=== PATIENT | female | born 1985 | race Caucasian/White ===

== ENCOUNTER 2017-04-27 10:35 | Inpatient (IN) | payer BC ==
[~2017-04-27 10:35] MED LIST: BUTORPHANOL TARTRATE 1 MG/ML VIAL IVPUSH ONE; ELECTROLYTE-148 SOLN 1,000 ML IV SCH; PROMETHAZINE HCL 25 MG/1 ML VIAL IVPUSH ONE
[2017-04-27] MEDS ORDERED: AMPICILLIN - 100 ML IVPB ONE (11:00)
[2017-04-27 11:58] LABS: BASOPHIL 0.3 % (0-2.0); EOSINOPHIL 0.5 % (0-4.5); MCH 26.2 pg (25.7-33.7); MEAN CELL VOLUME 82.1 fl (80-96); MEAN PLT VOLUME 11.7 fl (7.5-11.1); NEUTROPHILS 79.2 % (42.8-82.8); PLATELET COUNT 156 K/MM3 (134-434); RDW 15.1 % (11.6-15.6); WHITE BLOOD COUNT 10.1 K/mm3 (4.0-10.0)
[2017-04-27 12:09] VITALS: BMI 39.5
[2017-04-27 12:16] LABS: ANION GAP 11 (8-16); CALCIUM 8.6 mg/dL (8.5-10.1); CO2 22 mmol/L (21-32); CREATININE 0.6 mg/dL (0.55-1.02); GLUCOSE,RANDOM 77 mg/dL (74-106)
[2017-04-27 12:18] LABS: INR 0.93 (0.82-1.09); PROTHROMBIN TIME (PATIENT) 10.2 SEC (9.98-11.88)
[2017-04-27 12:20] LABS: ACTIVATED PTT 25.8 SECONDS (26.9-34.4)
[2017-04-27] MEDS ORDERED: METHYLERGONOVINE MALEATE 0.2 MG/1 ML AMP IM PRN (13:05)
[2017-04-27] MEDS ORDERED: BENZOCAINE 28 GM HEMORRHOIDAL OINTMENT TP PRN (13:05)
[2017-04-27] MEDS ORDERED: WITCH HAZEL 50% (TUCKS) 40 PAD/JAR PAD TP PRN (13:05)
[2017-04-27] MEDS ORDERED: BENZOCAINE 20% 57 GM BOTTLE TP PRN (13:05)
[2017-04-27] MEDS ORDERED: BISACODYL 10 MG SUPP.RECT RC PRN (13:05)
--- NOTE | 2017-04-27 13:13 | HP ---
Past Medical History - Admission History Source: Patient - Past Medical History ...: 3 ...Para: 0 ...Term: 0 ...: 0 ...Spon : 0 ...Induced : 0 ...Multiple Gestation: 0 ...LMP: 07/27/16 ... Weeks Gestation by Dates: 39.1 ...EDC by Dates: 05/03/17 ...EDC by Sono: 05/01/17 - Past Surgical History Past Surgical History: Yes: None Hx Myomectomy: No Hx Transabdominal Cerclage: No - Smoking History Smoking history: Never smoked Have you smoked in the past 12 months: No - Alcohol/Substance Use Hx Alcohol Use: No Home Medications - Allergies Allergies/Adverse Reactions: Allergies Allergy/AdvReac Type Severity Reaction Status Date / Time No Known Allergies Allergy Verified 04/27/17 11:51 - Home Medications Home Medications: Ambulatory Orders Pnv95/Ferrous Fumarate/FA [ Vitamin Tablet] 1 each PO DAILY 04/27/17 Review of Systems - Review of Systems Constitutional: reports: No Symptoms Eyes: reports: No Symptoms HENT: reports: No Symptoms Neck: reports: No Symptoms Cardiovascular: reports: No Symptoms Respiratory: reports: No Symptoms Gastrointestinal: reports: Abdominal Pain Genitourinary: reports: No Symptoms Breasts: reports: No Symptoms Reported Musculoskeletal: reports: No Symptoms Integumentary: reports: No Symptoms Neurological: reports: No Symptoms Endocrine: reports: No Symptoms Hematology/Lymphatic: reports: No Symptoms Psychiatric: reports: No Symptoms Physical Exam - Maternity Vital Signs: Vital Signs Temperature 98.1 F 04/27/17 10:35 Pulse Rate 78 04/27/17 10:35 Respiratory Rate 2 L 04/27/17 10:35 Blood Pressure 136/72 04/27/17 10:35 O2 Sat by Pulse Oximetry (%) Constitutional: Yes: Well Nourished, No Distress Neck: Yes: WNL Cardiovascular: Yes: WNL, Regular Rate and Rhythm Lungs: Clear to auscultation Breast(s): Yes: WNL - Abdominal Exam/OB Fundal Height: 40 Number of Fetuses: Single Presentation: Vertex Contractions: Yes Regularity: Regular Monitor Mode: External - Vaginal Exam/OB Speculum Exam: No Dilatation (cm): 5-6 Amniotic Membrane Status: Ruptured Presentation: Vertex/Position Station: +2 - Labs Lab Results: CBC, BMP 04/27/17 11:35 04/27/17 11:35 Problem List - Problems (1) First stage of labor established Code(s): BAS5937 - Assessment/Plan IUP at 39 week Labor Obesity plan Anticipate vaginal delivery
[2017-04-27] MEDS ORDERED: OXYTOCIN 20 UNITS in 0.9% NS 1,000 ML IV SCH (13:15)
--- NOTE | 2017-04-27 13:18 | PN ---
Delivery - Delivery Vaginal Delivery: No Problems Type of Anesthesia: None Episiotomy/Laceration: None (repaired with 2-0 chomic), 1st degree EBL (cc): 300 (Nuchal X1) Delivery, Single - Stages of Labor Placenta: Yes: Spontaneous - Condition of Infant Gender: Male - 1 Minute Total Score: 9 5 Minutes Total Score: 9 - [place] Feeding Plan Initial Plan: Elected not to breastfeed exclusively throughout hospitalization
[2017-04-27 13:28] LABS: ARTERIAL BLOOD GAS HCO3 24.4 meq/L (22-26); ARTERIAL BLOOD GAS pH 7.26 (7.35-7.45)
[2017-04-27 13:29] LABS: PT. ON O2? NO
[2017-04-27 13:30] LABS: ARTERIAL BLD GAS O2 SATURATION 45.6 % (90-98.9); ARTERIAL BLOOD GAS PO2 24.6 mmHg (80-100)
[2017-04-27 13:32] LABS: VENOUS BLOOD GAS HCO3 22.2 meq/L (19-25); VENOUS PH 7.32 (7.32-7.42)
[2017-04-27] MEDS: IBUPROFEN 600 MG TABLET (FP) PO PRN ×2 (14:00→22:42)
[2017-04-27] MEDS: ACETAMINOPHEN 325 MG TABLET (FP) PO PRN ×2 (14:00→22:39)
[2017-04-27] MEDS ORDERED: TUBERCULIN PPD 5 TU/0.1ML SYRINGE (IN PATIENT USE ONLY) ID ONE (14:30)
[2017-04-27] MEDS ORDERED: AMPICILLIN - 100 ML IVPB SCH (15:00)
[2017-04-28] MEDS: ACETAMINOPHEN 325 MG TABLET (FP) PO PRN ×3 (05:32→17:20)
[2017-04-28] MEDS: IBUPROFEN 600 MG TABLET (FP) PO PRN ×3 (05:34→17:19)
[2017-04-28 07:55] LABS: BASOPHIL 0.3 % (0-2.0); EOSINOPHIL 0.9 % (0-4.5); MCH 26.5 pg (25.7-33.7); MCHC 32.3 g/dl (32.0-36.0); MEAN PLT VOLUME 11.2 fl (7.5-11.1); NEUTROPHILS 68.1 % (42.8-82.8); PLATELET COUNT 129 K/MM3 (134-434); RDW 15.2 % (11.6-15.6); WHITE BLOOD COUNT 10.8 K/mm3 (4.0-10.0)
[2017-04-28] MEDS ORDERED: DIPHTH,PERTUSS(ACELL),TET 0.5 ML DISP.SYRIN IM ONE ×2 (10:00→15:00)
[2017-04-28] MEDS: PRENATAL VITAMINS W/ FOLIC ACID TABLET (FP) PO SCH (10:12)
--- NOTE | 2017-04-28 10:14 | PN ---
Post Progress Note Type of Delivery: Vital Signs: Vital Signs Temperature 98.4 F 04/28/17 07:40 Pulse Rate 59 L 04/28/17 07:40 Respiratory Rate 20 04/28/17 07:40 Blood Pressure 119/57 04/28/17 07:40 O2 Sat by Pulse Oximetry (%) Uterus: Yes: Fundus below umbilicus Abdomen/GI: Yes: Abdomen soft, Passing flatus, Tolerating PO. No: Tender Lochia, amount: Small Extremities: Yes: Calves non-tender Perineum: Yes: Laceration (1st degree, repaired and well approximated) Activity: Ambulating - Labs Labs: CBC WBC 10.8 K/mm3 (4.0-10.0) H 04/28/17 06:00 RBC 3.36 M/mm3 (3.60-5.2) L 04/28/17 06:00 Hgb 8.9 GM/dL (10.7-15.3) L D 04/28/17 06:00 Hct 27.6 % (32.4-45.2) L D 04/28/17 06:00 MCV 82.0 fl (80-96) 04/28/17 06:00 MCH 26.5 pg (25.7-33.7) 04/28/17 06:00 MCHC 32.3 g/dl (32.0-36.0) 04/28/17 06:00 RDW 15.2 % (11.6-15.6) 04/28/17 06:00 Plt Count 129 K/MM3 (134-434) L 04/28/17 06:00 MPV 11.2 fl (7.5-11.1) H 04/28/17 06:00 Neutrophils % 68.1 % (42.8-82.8) 04/28/17 06:00 Lymphocytes % 24.4 % (8-40) D 04/28/17 06:00 Monocytes % 6.3 % (3.8-10.2) 04/28/17 06:00 Eosinophils % 0.9 % (0-4.5) 04/28/17 06:00 Basophils % 0.3 % (0-2.0) 04/28/17 06:00 Problem List - Problems (1) Vaginal delivery Code(s): O80 - ENCOUNTER FOR FULL-TERM UNCOMPLICATED DELIVERY (2) Anemia Code(s): D64.9 - ANEMIA, UNSPECIFIED Assessment/Plan 31 y/o PPD#1 s/p normal - AFVSS - Hgb 8.9 post delivery, asymptomatic, for PO iron and prenatals - regular diet, PO pain meds - routine care
[2017-04-28] MEDS ORDERED: SENNOSIDES/DOCUSATE COMBO (SENNA PLUS) TABLET (UD) PO PRN (22:00)
[2017-04-29] MEDS: IBUPROFEN 600 MG TABLET (FP) PO PRN ×2 (00:01→10:11)
[2017-04-29] MEDS: FERROUS SO4 325 MG TABLET (FP) PO SCH ×2 (00:01→10:07)
[2017-04-29 06:32] VITALS: TEMP 98
--- NOTE | 2017-04-29 06:48 | DS ---
Physical Exam-MANAGER BALANCE Vital Signs: Vital Signs Temperature 98 F 04/29/17 06:00 Pulse Rate 57 L 04/29/17 06:00 Respiratory Rate 18 04/29/17 06:00 Blood Pressure 112/67 04/29/17 06:00 O2 Sat by Pulse Oximetry (%) Labs: CBC, BMP 04/28/17 06:00 04/27/17 11:35 Delivery - Delivery Vaginal Delivery: No Problems Type of Anesthesia: None Episiotomy/Laceration: None (repaired with 2-0 chomic), 1st degree EBL (cc): 300 (Nuchal X1) Delivery, Single - Stages of Labor Date 1st Stage Initiatied: 04/27/17 Time 1st Stage Initiated: 09:15 Date 2nd Stage Initiated: 04/27/17 Time 2nd Stage Initiated: 12:30 Date of Delivery: 04/27/17 Time of Delivery: 12:49 Time Placenta Delivered: 12:55 Placenta: Yes: Spontaneous - Condition of Press Secretary/Occupational Therapy Program Director Present: No Infant Gender: Male Weight: 6 lb 15 oz Position: OA Total Hours ROM (Hrs/Mins): 3HRS 55MIN - 1 Minute Total Score: 9 5 Minutes Total Score: 9 - Feeding Plan Initial Plan: Elected not to breastfeed exclusively throughout hospitalization Discharge Summary Reason For Visit: ADMISSION Current Active Problems Anemia (Acute) First stage of labor established (Acute) Vaginal delivery (Acute) Procedures: Principal: Normal Hospital Course: Patient admitted in labor (full term) on 04/27/17. Patient underwent normal on 04/27/17 and was discharged home in stable condition on post day 2. Condition: Good - Instructions Diet, Activity, Other Instructions: Physical activity Resume your normal everyday activity as tolerated no heavy lifting or exercise until seen by your surgeon. You may walk unlimited myah of and climb stairs. You may resume driving the car when you feel safe and comfortable behind the wheel. No sexual activity as instructed. Wound care If you have a bandage, leave it on, and keep dry for 48-72 hours. After that time discard the outer bandage. If they are tapes on the skin under the out of bandage leave them in place. They will peel off in the next 7 to 10 days. Do Not Peel them off. You may shower the day after surgery. If there are tapes present on the skin, you may shower over them. Diet There are no dietary restrictions. Eat healthy, high-fiber foods. Drink 6 to 8 glasses of liquid each day. This will assist in keeping your bowels are regular. Pain management You may take Tylenol or acetaminophen or Ibuprofen (for example, Motrin, Advil etc.) from my pain prescription medication is ordered should be taken as prescribed for moderate to severe pain. Call MD for any of the following: Severe pain not relieved by medication Fever of 101 or higher Excessive bleeding or drainage on dressing Inability to urinate Referrals: Marce Mackey MD [Staff Physician] - Disposition: HOME - Home Medications Comprehensive Discharge Medication List: Ambulatory Orders Ibuprofen [Motrin -] 600 mg PO QID PRN #28 tablet 04/27/17 Pnv95/Ferrous Fumarate/FA [ Vitamin Tablet] 1 each PO DAILY 04/27/17
[2017-04-29] MEDS: PRENATAL VITAMINS W/ FOLIC ACID TABLET (FP) PO SCH (10:07)
[2017-04-29] MEDS: ACETAMINOPHEN 325 MG TABLET (FP) PO PRN ×2 (10:10)
[2017-04-29 10:27] VITALS: BP 113/68; PULSE 82
== END 2017-04-29 10:39 | disposition home or self-care (01) | DRG 775 ==
LOC: JLDR 10:35 → J3W 14:30
PROVIDERS: ADMIT Obstetrics & Gynecology; ATTEND Obstetrics & Gynecology
PROC: 10E0XZZ Delivery of Products of Conception, External Approach (ICD-10-PCS; principal; 2017-04-27)
PROC: 0HQ9XZZ Repair Perineum Skin, External Approach (ICD-10-PCS; 2017-04-27)
PROC: 4A1HXCZ Monitoring of Products of Conception, Cardiac Rate, External Approach (ICD-10-PCS; 2017-04-27)
DX: O69.81X0 Labor and delivery complicated by cord around neck, without compression, not applicable or unspecified (principal); O70.0 First degree perineal laceration during delivery; D64.9 Anemia, unspecified; O99.02 Anemia complicating childbirth; Z37.0 Single live birth; Z3A.39 39 weeks gestation of pregnancy
CPT/HCPCS: 36415; 36600; 59409; 71020-TC; 80048; 82803; 85025; 85610; 85730; 86593; 86850; 86900; 86901; 90715

== ENCOUNTER 2017-09-26 15:03 | Emergency (ER) | payer BC ==
[2017-09-26 15:12] VITALS: BMI 33.4
--- NOTE | 2017-09-26 15:58 | PDOC ---
Attending Attestation - Resident Resident Name: Dash Tejeda - ED Attending Attestation I have performed the following: I have examined & evaluated the patient, The case was reviewed & discussed with the resident, I agree w/resident's findings & plan, Exceptions are as noted - HPI HPI: 31 yo F history PCOS, currently 4 months presents with vaginal bleeding. She states that she suspects she may be , but has not taken a test at home. She states she has had heavy vaginal bleeding with passage of clots. Denies weakness, numbness, LOC. - Physicial Exam PE: GENERAL: Awake, alert, and fully oriented, in no acute distress HEAD: No signs of trauma EYES: PERRLA, EOMI, sclera anicteric, conjunctiva clear ENT: Auricles normal inspection, hearing grossly normal, nares patent, oropharynx clear without exudates. Moist mucosa NECK: Normal ROM, supple, no lymphadenopathy, JVD, or masses LUNGS: Breath sounds equal, clear to auscultation bilaterally. No wheezes, and no crackles HEART: Regular rate and rhythm, normal S1 and S2, no murmurs, rubs or gallops ABDOMEN: Soft, nontender, normoactive bowel sounds. No guarding, no rebound. No masses EXTREMITIES: Normal range of motion, no edema. No clubbing or cyanosis. No cords, erythema, or tenderness NEUROLOGICAL: Cranial nerves II through XII grossly intact. Normal speech, normal gait SKIN: Warm, Dry, normal turgor, no rashes or lesions noted. : No external lesions. +Mod vaginal bleeding with mod blood and clots in the vault. - Medical Decision Making Pt with 1 day history of heavy vaginal bleeding. Will send test, then obtain ultrasound once it results. IVF while awaiting results. Addendum- Patient with positive serum preg. Passing clots and what appears to be tissue in ED. Awaiting sono to further evaluate. Endorsed to Dr. Bey at 7pm shift change. Suspect miscarriage in progress. Will d/w countersinker and consider methergine/pitocin as needed. Hemodynamically stable at present.
--- NOTE | 2017-09-26 16:36 | PDOC ---
History of Present Illness - General Chief Complaint: Vaginal Bleeding Stated Complaint: VAGINAL BLEEDING Time Seen by Provider: 09/26/17 15:46 - History of Present Illness Initial Comments: 31 year old female [id number] with history of PCOS and 4 months prior presenting with heavy vaginal bleeding for the past day with clots. Denies nausea, vomiting, diarrhea, constipation, chest pain, SOB, or other sick symptoms. She is not currently on OCPs and states that her LMP was 07/26/16. Her stockkeeper is Dr. Be who she saw a few weeks prior and had a regular pap smear. 09/26/17 16:17 Past History - Past Medical History Allergies/Adverse Reactions: Allergies Allergy/AdvReac Type Severity Reaction Status Date / Time No Known Allergies Allergy Verified 09/26/17 15:09 Home Medications: Ambulatory Orders NK [No Known Home Medication] 09/26/17 Asthma: No Cancer: No Cardiac Disorders: No COPD: No Diabetes: No HTN: No Seizures: No Thyroid Disease: No - Immunization History Immunization Up to Date: Yes - Suicide/Smoking/Psychosocial Hx Smoking History: Never smoked Have you smoked in the past 12 months: No Hx Alcohol Use: No Drug/Substance Use Hx: No Hx Substance Use Treatment: No Review of Systems - Review of Systems Constitutional: No: Chills, Diaphoresis, Fever, Loss of Appetite HEENTM: No: Blurred Vision, Recent change in vision, Double Vision Respiratory: No: Cough, Orthopnea, Shortness of Breath Cardiac (ROS): No: Chest Pain, Edema ABD/GI: Yes: Abdominal cramping. No: Diarrhea, Nausea, Vomiting : Yes: Hematuria Musculoskeletal: No: Back Pain Integumentary: No: Bruising, Lesions, Lumps Neurological: No: Headache, Numbness *Physical Exam - Vital Signs Last Vital Signs Temp Pulse Resp BP Pulse Ox 98.2 F 115 H 18 118/66 100 09/26/17 15:09 09/26/17 15:09/26/17 15:09/26/17 15:09/26/17 15:09 - Physical Exam General Appearance: Yes: Nourished, Appropriately Dressed. No: Apparent Distress HEENT: positive: EOMI, STEVO, Normal ENT Inspection, Normal Voice Neck: positive: Trachea midline, Normal Thyroid, Supple. negative: Tender, Rigid Respiratory/Chest: positive: Lungs Clear, Normal Breath Sounds. negative: Chest Tender, Respiratory Distress, Accessory Muscle Use Cardiovascular: positive: Regular Rhythm, Tachycardia. negative: Murmur Female Pelvic Exam: positive: normal adnexa, vaginal bleeding, other (clots in vaginal vault). negative: normal external exam (blood a the bottom of the vagina), cervical os closed (slightly open 3-4 mm), CMT Gastrointestinal/Abdominal: positive: Normal Bowel Sounds, Flat, Soft. negative : Tender (bilateral lower abdominal quadrants) Musculoskeletal: positive: Normal Inspection. negative: CVA Tenderness Extremity: positive: Normal Capillary Refill, Normal Inspection, Normal Range of Motion. negative: Tender Integumentary: positive: Normal Color, Dry, Warm Neurologic: positive: Fully Oriented, Alert, Normal Mood/Affect, Normal Response , Motor Strength 5/5 ED Treatment Course - LABORATORY CBC & Chemistry Diagram: 09/26/17 16:38 09/26/17 16:38 Medical Decision Making - Medical Decision Making 31 year old female [id number] presenting with heavy vaginal bleeding after missed period. Vaginal exam significant for heavy bleeding and clots. Serum preg / bhcg, cbc, t&t, and CMP sent. Will get TVUS as well. Differential includes fibroids vs. hemorrhagic cyst vs. (complete vs. incomplete) 09/26/17 16:53 BHCG 84 K so likely incomplete vs. threatened although partially open cervix coudl be residual from recent so additional diagnosis of complete possible. Lianna signed out to Dr. Heard pending TVUS. 09/26/17 18:00 *DC/Admit/Observation/Transfer Diagnosis at time of Disposition: History of - miscarriage - Discharge Dispostion Disposition: HOME Condition at time of disposition: Good - Referrals Referrals: Marce Mackey MD [Primary Care Provider] - - Patient Instructions Printed Discharge Instructions: DI for Miscarriage Additional Instructions: You were evaluated today for vaginal bleeding during . An ultrasound of your uterus showed no viable and that you have had a miscarriage. It is very important to call your director of player personnel Dr. Hernandez tomorrow (09/27) and make an appointment for evaluation tomorrow. Return to the Emergency Department for any new/worsening/concerning symptoms. - Post Discharge Activity
[2017-09-26] MEDS ORDERED: LACTATED RINGERS SOLUTION 1000 ML INFUS.BAG IV ONE (16:44)
[2017-09-26 16:52] LABS: BASO % 0.3 % (0-2.0); EOS % 0.9 % (0-4.5); HEMATOCRIT 33.7 % (32.4-45.2); LYMPH % 17.6 % (8-40); MCH 25.5 pg (25.7-33.7); MCHC 32.7 g/dl (32.0-36.0); MEAN PLT VOLUME 9.2 fl (7.5-11.1); MONO % 8.6 % (3.8-10.2); NEUT % 72.6 % (42.8-82.8); PLATELET COUNT 224 K/MM3 (134-434); RBC 4.32 M/mm3 (3.60-5.2); RDW 16.6 % (11.6-15.6); WHITE BLOOD COUNT 9.6 K/mm3 (4.0-10.0)
[2017-09-26 17:34] LABS: ALBUMIN 3.2 g/dl (3.4-5.0); ANION GAP 7 (8-16); BILIRUBIN,TOTAL 0.9 mg/dL (0.2-1.0); BLOOD UREA NITROGEN 13 mg/dL (7-18); CALCIUM 8.5 mg/dL (8.5-10.1); CHLORIDE 103 mmol/L (98-107); CO2 27 mmol/L (21-32); CREATININE 0.5 mg/dL (0.55-1.02); GLUCOSE,RANDOM 85 mg/dL (74-106); POTASSIUM 3.9 mmol/L (3.5-5.1); SGOT/AST 50 U/L (15-37); SGPT/ALT 48 U/L (12-78); SODIUM 137 mmol/L (136-145)
[2017-09-26 17:48] LABS: ALK PHOS 83 U/L (45-117)
--- NOTE | 2017-09-26 18:29 | PDOC ---
*Physical Exam - Vital Signs Last Vital Signs Temp Pulse Resp BP Pulse Ox 98.2 F 115 H 18 118/66 100 09/26/17 15:09 09/26/17 15:09 09/26/17 15:09 09/26/17 15:09 09/26/17 15:09 ED Treatment Course - LABORATORY CBC & Chemistry Diagram: 09/26/17 16:38 09/26/17 16:38 - ADDITIONAL ORDERS Additional order review: Laboratory Results 09/26/17 09/26/17 09/26/17 16:38 16:38 16:38 Sodium 137 Potassium 3.9 Chloride 103 Carbon Dioxide 27 Anion Gap 7 L BUN 13 Creatinine 0.5 L Creat Clearance w eGFR > 60 Random Glucose 85 Calcium 8.5 Total Bilirubin 0.9 AST 50 H ALT 48 Alkaline Phosphatase 83 Total Protein 7.0 Albumin 3.2 L Beta HCG, Quant Cancelled 42114.3 Serum , Qual Positive 09/26/17 16:38 RBC 4.32 D MCV 78.0 L MCHC 32.7 RDW 16.6 H MPV 9.2 D Neutrophils % 72.6 Lymphocytes % 17.6 D Monocytes % 8.6 Eosinophils % 0.9 Basophils % 0.3 - Medications Given in the ED: ED Medications Discontinued Medications Generic Name Dose Route Start Last Admin Trade Name Freq PRN Reason Stop Dose Admin Lactated Ringer's 1,000 ml 09/26/17 16:44 09/26/17 17:04 Lactated Ringers Solution IV 09/26/17 16:45 1,000 ml ONCE ONE Administration Medical Decision Making - Medical Decision Making 09/27/17 07:00 Patient signed out by Dr. Tejeda (Resident) under the care of Dr. Jensen ( Attending) 31 y.o. female at a self reported 4-6 weeks gestation presents c/o 1 day h/ o vaginal bleed. TVUS showed no IUP with retained POC. Case d/w patient's sample steamer (Dr. Hernandez) who agrees with PO Methergine and will evaluate patient tomorrow as outpatient. Patient discharged home with return precautions and instruction to f/u with sample steamer tomorrow (09/27/17). I discussed the physical exam findings, ancillary test results and final diagnoses with the patient. I answered all of the patient's questions. The patient was satisfied with the care received and felt comfortable with the discharge plan and treatment plan. The patient will return to the Emergency Department with any new, persistent or worsening symptoms. *DC/Admit/Observation/Transfer Diagnosis at time of Disposition: History of - miscarriage Diagnosis at time of Disposition: (Ruled Out): Spontaneous - Discharge Dispostion Disposition: HOME Condition at time of disposition: Good Admit: No - Referrals Referrals: Marce Mackey MD [Primary Care Provider] - - Patient Instructions Printed Discharge Instructions: DI for Miscarriage Additional Instructions: You were evaluated today for vaginal bleeding during . An ultrasound of your uterus showed no viable and that you have had a miscarriage. It is very important to call your sample steamer Dr. Hernandez tomorrow (09/27) and make an appointment for evaluation tomorrow. Return to the Emergency Department for any new/worsening/concerning symptoms. - Post Discharge Activity
[2017-09-26] MEDS ORDERED: ACETAMINOPHEN 1000 MG/100 ML VIAL (NON FORMULARY) IVPB ONE (20:09)
[2017-09-26] MEDS ORDERED: ACETAMINOPHEN INJECTION 100 ML IVPB ONE (21:02)
[2017-09-26] MEDS ORDERED: METHYLERGONOVINE MALEATE 0.2 MG TABLET (FP) PO ONE (21:30)
[2017-09-26 22:41] VITALS: BP 117/72; PULSE 87; TEMP 98.4
== END 2017-09-26 22:41 | disposition home or self-care (01) ==
LOC: JER 15:03
PROC: 3E033NZ Introduction of Analgesics, Hypnotics, Sedatives into Peripheral Vein, Percutaneous Approach (ICD-10-PCS; principal; 2017-09-26)
DX: O26.891 Other specified pregnancy related conditions, first trimester (principal); O03.4 Incomplete spontaneous abortion without complication; Z3A.01 Less than 8 weeks gestation of pregnancy
CPT/HCPCS: 36415; 76817-TC; 80053; 84702; 84703; 85025; 86850; 86900; 86901; 99285-25

== ENCOUNTER 2022-10-20 01:15 | Inpatient (IN) | payer OTHER ==
[2022-10-20] MEDS ORDERED: OXYTOCIN 20 UNITS in 0.9% NS 20 UNIT/1,000 ML INFUS.BAG IV ONE (01:36)
[2022-10-20] MEDS ORDERED: LIDOCAINE HCL 1% PRESERVATIVE FREE - 30ML VIAL ONE (01:37)
[2022-10-20] MEDS ORDERED: AMPICILLIN SODIUM 2 GM VIAL ONE (01:39)
[2022-10-20 02:23] VITALS: BMI 43.3
[2022-10-20 02:54] LABS: BASO % 0.1 % (0-2.0); EOS % 0.7 % (0-4.5); HEMATOCRIT 34.4 % (32.4-45.2); HEMOGLOBIN 11.4 GM/dL (10.7-15.3); LYMPH % 14.3 % (8-40); MCH 26.7 pg (25.7-33.7); MCHC 33.1 g/dl (32.0-36.0); MEAN CELL VOLUME 80.8 fl (80-96); MEAN PLT VOLUME 10.3 fl (7.5-11.1); MONO % 5.7 % (3.8-10.2); NEUT % 79.2 % (42.8-82.8); PLATELET COUNT 212 10^3/uL (134-434); RBC 4.26 M/mm3 (3.60-5.2)
[2022-10-20] MEDS ORDERED: WITCH HAZEL 50% (TUCKS) 40 PAD/JAR PAD TP PRN (02:55)
[2022-10-20] MEDS ORDERED: BENZOCAINE 28 GM HEMORRHOIDAL OINTMENT TP PRN (02:55)
[2022-10-20] MEDS ORDERED: METHYLERGONOVINE MALEATE 0.2 MG/1 ML AMP IM PRN (02:55)
[2022-10-20] MEDS ORDERED: BENZOCAINE 20% 57 GM BOTTLE TP PRN (02:55)
[2022-10-20] MEDS ORDERED: oxyCODONE HCL 5 MG TABLET PO PRN (02:55)
[2022-10-20] MEDS ORDERED: BISACODYL 10 MG SUPP.RECT RC PRN (02:55)
[2022-10-20] MEDS ORDERED: OXYTOCIN 20 UNITS in 0.9% NS 20 UNIT/1,000 ML INFUS.BAG IV SCH (03:00)
[2022-10-20] MEDS: IBUPROFEN 600 MG TABLET (FP) PO PRN ×3 (03:05→14:54)
[2022-10-20 03:16] LABS: CALCIUM 9.1 mg/dL (8.5-10.1)
[2022-10-20 03:17] LABS: BLOOD UREA NITROGEN 11.1 mg/dL (7-18)
[2022-10-20 03:20] LABS: CREATININE 0.6 mg/dL (0.55-1.3)
[2022-10-20 04:14] LABS: HIV INTERPRETATION NEGATIVE (NEGATIVE)
[2022-10-20] MEDS: ACETAMINOPHEN 325 MG TABLET (FP) PO PRN (04:25)
[2022-10-20 04:57] LABS: INR 0.96 (0.83-1.09); PROTHROMBIN TIME (PATIENT) 11.1 SEC (9.7-13.0)
[2022-10-20 05:00] LABS: ACTIVATED PTT 25.7 SECONDS (25.2-36.5)
[2022-10-20 05:02] LABS: COCAINE, UR NEGATIVE (NEGATIVE); OPIATES, URI NEGATIVE (NEGATIVE); URINE BARBITURATES NEGATIVE (NEGATIVE)
[2022-10-20 05:03] LABS: METHADONE, UR NEGATIVE (NEGATIVE); PHENCYCLIDINE,URINE NEGATIVE (NEGATIVE); URINE BENZODIAZEPINES NEGATIVE (NEGATIVE)
[2022-10-20 05:29] LABS: URINE AMPHETAMINES NEGATIVE (NEGATIVE)
[2022-10-20] MEDS: FERROUS SO4 325 MG TABLET (FP) PO SCH ×3 (08:52→17:28)
[2022-10-20] MEDS: PRENATAL VITAMINS W/ FOLIC ACID TABLET (FP) PO SCH (09:00)
[2022-10-21] MEDS: IBUPROFEN 600 MG TABLET (FP) PO PRN ×3 (00:59→17:53)
[2022-10-21] MEDS: FERROUS SO4 325 MG TABLET (FP) PO SCH ×3 (08:48→17:54)
[2022-10-21] MEDS: PRENATAL VITAMINS W/ FOLIC ACID TABLET (FP) PO SCH (09:00)
[2022-10-21 09:36] LABS: BASO % 0.2 % (0-2.0); EOS % 1.4 % (0-4.5); HEMOGLOBIN 9.3 GM/dL (10.7-15.3); LYMPH % 29.6 % (8-40); MCH 27.2 pg (25.7-33.7); MCHC 33.3 g/dl (32.0-36.0); MEAN CELL VOLUME 81.6 fl (80-96); MEAN PLT VOLUME 10.1 fl (7.5-11.1); MONO % 5.5 % (3.8-10.2); NEUT % 63.3 % (42.8-82.8); PLATELET COUNT 193 10^3/uL (134-434); RBC 3.42 M/mm3 (3.60-5.2); RDW 16.1 % (11.6-15.6); WHITE BLOOD COUNT 9.8 K/mm3 (4.0-10.0)
[2022-10-21] MEDS: ACETAMINOPHEN 325 MG TABLET (FP) PO PRN (12:33)
[2022-10-21] MEDS ORDERED: SENNOSIDES/DOCUSATE COMBO (SENNA PLUS) TABLET (UD) PO PRN (22:00)
[2022-10-22 00:30] VITALS: RESP 18
[2022-10-22 09:13] VITALS: BP 123/66; PULSE 81; TEMP 98
[2022-10-22] MEDS: IBUPROFEN 600 MG TABLET (FP) PO PRN (09:26)
[2022-10-22] MEDS: FERROUS SO4 325 MG TABLET (FP) PO SCH ×2 (09:26→11:14)
[2022-10-22] MEDS: PRENATAL VITAMINS W/ FOLIC ACID TABLET (FP) PO SCH (09:26)
== END 2022-10-22 12:25 | disposition home or self-care (01) | DRG 560 ==
LOC: JLDR 01:15 → J3W 04:08
PROVIDERS: ADMIT Obstetrics & Gynecology; ATTEND Obstetrics & Gynecology
PROC: 10E0XZZ Delivery of Products of Conception, External Approach (ICD-10-PCS; principal; 2022-10-20)
PROC: 0HQ9XZZ Repair Perineum Skin, External Approach (ICD-10-PCS; 2022-10-20)
DX: O62.3 Precipitate labor (principal); O70.0 First degree perineal laceration during delivery; O99.824 Streptococcus B carrier state complicating childbirth; Z3A.38 38 weeks gestation of pregnancy; Z37.0 Single live birth
CPT/HCPCS: 36415; 59409; 80048; 80307; 85025; 85610; 85730; 86780; 86850; 86900; 86901; 87389; C9803-CS; U0003; U0005